=== PATIENT | female | born 1990 | race Caucasian/White ===

== ENCOUNTER 2019-04-21 00:08 | Emergency (ER) | payer OTHER ==
--- NOTE | 2019-04-21 01:11 | ED ---
Bite Injury/Animal - HPI Summary HPI Summary: Patient states she was scratched by her roommate's cat today. Patient is concerned for rabies exposure, as the cat attacked the bat yesterday. Cat is vaccinated. Scratches to distal fourth digit of right hand. Denies any other pain, injury or symptoms. - History of Current Complaint Chief Complaint: EDAnimalBite Stated Complaint: POS EXPOSED TO RABIES PER PT Hx Obtained From: Patient Onset of Injury: Happened hours ago Type of Bite: Pet Has Animal Been Immunized?: Yes Severity Initially: Mild Severity Currently: None Pain Intensity: 0 Pain Scale Used: 0-10 Numeric Character: Abrasion/Laceration Associated Signs And Symptoms: Positive: Negative Animal Available for Observation: Yes - Allergies/Home Medications Allergies/Adverse Reactions: Allergies Allergy/AdvReac Type Severity Reaction Status Date / Time No Known Allergies Allergy Verified 04/21/19 01:16 Home Medications: Home Medications Levothyroxine TAB* 0.75 mcg PO DAILY 04/21/19 [History Confirmed 04/21/19] PMH/Surg Hx/FS Hx/Imm Hx Endocrine/Hematology History: Denies: Hx Anticoagulant Therapy Cardiovascular History: Denies: Hx Pacemaker/ICD History: Denies: Hx Dialysis Sensory History: Denies: Hx Eye Prosthesis Opthamlomology History: Denies: Hx Legally Blind EENT History: Denies: Hx Deafness Neurological History: Denies: Hx Dementia Infectious Disease History: No Infectious Disease History: Denies: Traveled Outside the [place] in Last 30 Days - Family History Known Family History: Positive: Non-Contributory - Social History Alcohol Use: Occasionally Substance Use Type: Reports: None Smoking Status (MU): Never Smoked Tobacco Review of Systems Constitutional: Negative Eyes: Negative ENT: Negative Cardiovascular: Negative Respiratory: Negative Gastrointestinal: Negative Genitourinary: Negative Musculoskeletal: Negative Skin: Other Neurological: Negative Psychological: Normal All Other Systems Reviewed And Are Negative: Yes Physical Exam - Summary Physical Exam Summary: Small superficial laceration to medial surface of distal fourth digit of right hand. Laceration 1 cm x 0.25 cm. No indication for suturing. No erythema, ecchymosis, deformity, swelling noted. Triage Information Reviewed: Yes Vital Signs On Initial Exam: Initial Vitals Temp Pulse Resp BP Pulse Ox 98.6 F 79 16 143/93 100 04/21/19 00:10 04/21/19 00:10 04/21/19 00:10 04/21/19 00:10 04/21/19 00:10 Vital Signs Reviewed: Yes Appearance: Positive: Well-Appearing Skin: Positive: Warm Head/Face: Positive: Normal Head/Face Inspection Eyes: Positive: Normal Neck: Positive: Supple Respiratory/Lung Sounds: Positive: Clear to Auscultation Cardiovascular: Positive: Normal Abdomen Description: Positive: Nontender Musculoskeletal: Positive: Normal Neurological: Positive: Normal Psychiatric: Positive: Normal AVPU Assessment: Alert - Willis Coma Scale Best Eye Response: 4 - Spontaneous Best Motor Response: 6 - Obeys Commands Best Verbal Response: 5 - Oriented Coma Scale Total: 15 Diagnostics - Vital Signs Vital Signs Temp Pulse Resp BP Pulse Ox 04/21/19 00:10 98.6 F 79 16 143/93 100 - Laboratory Lab Statement: Any lab studies that have been ordered have been reviewed, and results considered in the medical decision making process. Bite Injury Course/Dx - Course Course Of Treatment: Patient states she was scratched by her roommate's cat today. Patient is concerned for rabies exposure, as the cat attacked the bat yesterday. Cat is vaccinated. Scratches to distal fourth digit of right hand. Denies any other pain, injury or symptoms. Vital signs within normal limits. Discussed patient with [facility] Juliano Morales stated patient did not meet criteria for rabies treatment. Patient advised to call [facility] or return to the ED for any concerning symptoms. - Diagnoses Provider Diagnosis: Cat scratch of right hand Discharge - Sign-Out/Discharge Documenting (check all that apply): Patient Departure Patient Received Moderate/Deep Sedation with Procedure: No - Discharge Plan Condition: Stable Disposition: HOME Patient Education Materials: Abrasion (ED) Referrals: No Primary Care Phys,NOPCP [Primary Care Provider] - Additional Instructions: Keep wound clean and dry. If cat starts to display unusual symptoms or behavior contact [facility] department - Billing Disposition and Condition Condition: STABLE Disposition: Home
[2019-04-21 02:05] VITALS: BP 144/86
== END 2019-04-21 02:04 | disposition home or self-care (01) ==
LOC: ED 00:08
DX: S60.511A Abrasion of right hand, initial encounter (principal); W55.03XA Scratched by cat, initial encounter; Y92.009 Unspecified place in unspecified non-institutional (private) residence as the place of occurrence of the external cause
CPT/HCPCS: 99282

== ENCOUNTER 2019-10-16 18:42 | Emergency (ER) | payer OTHER ==
--- OUTSIDE RECORDS SUMMARY | 2019-10-16 18:56 | XMS REPORT | Continuity of Care Document ---
:1990 External Reference #:[id number] Author Name Johana Rai CNM Address [address] [place] [address] Care Team Providers Name Role Phone Sonam Barrios MD Care Team Information [place] [employer] [phone] Problems Description No Information Available Social History Type Date Description Comments Sex Unknown Cigarette Use Does Not Smoke Cigarettes ETOH Use Occasionally consumes alcohol Recreational Drug Use Denies Drug Use Seat Belt/Car Seat Always uses seat belt Allergies, Adverse Reactions, Alerts Active Allergies Reaction Severity Comments Date Tetanus Toxoid Vaccine, Childhood, has since had 08/18/2019 Inactivated Tdap with monitoring/antihistamine Hepatitis B Vaccine Hives 08/18/2019 Medications Active Medications SIG Qnty Indications Ordering Date Provider Levothyroxine Sodium 1 by mouth Unknown 75mcg Tablets every day Claritin Unknown 10mg Capsules Multivitamin Adult Unknown Chewtabs Dexmethylphenidate HCL ER Unknown 25mg Caps ER 24HR L-Lysine HCL Unknown 1000mg Tablets Medications Administered in Office Medication SIG Qnty Indications Ordering Provider Date PT SCRN Tbco Id as Non User Johana Rai CNM 08/18/2019 Injection Immunizations Description No Information Available Vital Signs Date Vital Result Comment 08/18/2019 8:00am BP Systolic 120 mmHg BP Diastolic 78 mmHg Height 65 inches 5'5" Weight 213.00 lb BMI (Body Mass Index) 35.4 kg/m2 Last Menstrual Period [id number] 0 Parity 0 Results Description No Information Available Procedures Description No Information Available Medical Devices Description No Information Available Encounters Description No Information Available Assessments Date Code Description Provider 08/18/2019 Z30.09 Encounter for other general counseling and Johana Rai CNM advice on contraception 08/18/2019 N94.6 Dysmenorrhea, unspecified Johana Rai CNM 08/18/2019 N83.299 Other ovarian cyst, unspecified side Johana Rai CNM Plan of Treatment Future Appointment(s):09/30/2019 1:30 pm - Carmen Hicks MD at [facility] - Johana Rai CNMZ30.09 Encounter for other general counseling and advice on contraceptionComments:As discussed, you would like to try Liletta IUD for cycle control and contraception. We will schedule you with one of the doctors who could consider using a block for placement as well as continue the conversation about managing periods.N94.6 Dysmenorrhea, vbdpbfeseisM47.299 Other ovarian cyst, unspecified sideComments:Call with pain or other problems to consider imaging if indicated. For now you have decelined further workup with labs/sono but could do in future. Functional Status Description No Information Available Mental Status Description No Information Available Referrals Description No Information Available
--- OUTSIDE RECORDS SUMMARY | 2019-10-16 18:56 | XMS REPORT | Continuity of Care Document ---
:1990 External Reference #:[id number] Author Name Carmen Hicks MD Address [address] [place] [address] Care Team Providers Name Role Phone Sonam Barrios MD Care Team Information Land Checker [phone] Problems Description No Information Available Social History Type Date Description Comments Sex Unknown Cigarette Use Does Not Smoke Cigarettes ETOH Use Occasionally consumes alcohol Recreational Drug Use Denies Drug Use Tobacco Use Start: Unknown Patient has never smoked Smoking Status Reviewed: 09/30/19 Patient has never smoked Seat Belt/Car Seat Always uses seat belt Allergies, Adverse Reactions, Alerts Active Allergies Reaction Severity Comments Date Tetanus Toxoid Vaccine, Childhood, has since had 08/18/2019 Inactivated Tdap with monitoring/antihistamine Hepatitis B Vaccine Hives 08/18/2019 Medications Active Medications SIG Qnty Indications Ordering Date Provider Kyle (52 MG) Carmen Hicks, 09/30/2019 19.5mcg/Day IUD Levothyroxine Sodium 1 by mouth Unknown 75mcg Tablets every day Claritin Unknown 10mg Capsules Multivitamin Adult Unknown Chewtabs Dexmethylphenidate HCL ER Unknown 30mg Caps ER 24HR L-Lysine HCL Unknown 1000mg Tablets Medications Administered in Office Medication SIG Qnty Indications Ordering Provider Date PT SCRN Tbco Id as Non User Johana Rai CNM 08/18/2019 Injection Immunizations Description No Information Available Vital Signs Date Vital Result Comment 09/30/2019 1:24pm BP Systolic 124 mmHg BP Diastolic 74 mmHg Height 65 inches 5'5" Weight 211.00 lb BMI (Body Mass Index) 35.1 kg/m2 Last Menstrual Period [id number] 08/18/2019 8:00am BP Systolic 120 mmHg BP Diastolic 78 mmHg Height 65 inches 5'5" Weight 213.00 lb BMI (Body Mass Index) 35.4 kg/m2 Last Menstrual Period [id number] 0 Parity 0 Results Description No Information Available Procedures Date Code Description Status 09/30/2019 11314 Insert Intrauterine Device Completed Medical Devices Description No Information Available Encounters Type Date Location Provider Dx Diagnosis Office Visit 08/18/2019 [facility] Office Johana Rai Z30.09 Encounter for oth 8:15a CNM general coun and advice on contraception N94.6 Dysmenorrhea, unspecified N83.299 Other ovarian cyst, unspecified side Assessments Date Code Description Provider 09/30/2019 Z30.430 Encounter for insertion of intrauterine Carmen Hicks MD contraceptive device 08/18/2019 Z30.09 Encounter for other general counseling and Johana Rai CNM advice on contraception 08/18/2019 N94.6 Dysmenorrhea, unspecified Johana Rai CNM 08/18/2019 N83.299 Other ovarian cyst, unspecified side Johana Rai CNM Plan of Treatment Future Appointment(s):11/09/2019 2:30 pm - Carmen Hicks MD at [id number] - Carmen Hicks MDZ30.430 Encounter for insertion of intrauterine contraceptive deviceComments:Sometimes patients experience nausea or dizziness soon after insertion. If this happens, sit/lay down right away to avoid passing out. You may experience irregular bleeding for 3-6 months. This is generally light bleeding or spotting. You may continue to have periods but they should be russet repairer thanbefore. Your periods may go away completely or you may have a few days of light bleeding or brownish discharge in place of a period. If you are changing heavy pads more than once an hour, call the office. You may have cramping for a few days to a few weeks. Take 600mg of Ibuprofen and if pain is still severe call the office. Continue current form of control for 1 week.Return for IUD check in6-8 weeks. You should try to check your strings before your appointment. Functional Status Description No Information Available Mental Status Description No Information Available Referrals Description No Information Available
[2019-10-16] MEDS ORDERED: oxyCODONE/Acetamin 5/325 MG* TAB PO ONE (20:32)
--- NOTE | 2019-10-16 21:32 | ED ---
GI/ HPI - HPI Summary HPI Summary: 29-year-old female presents with iud issue. She had it placed 3 weeks ago. States that she is currently bleeding more today. States that today she had more intense cramping and felt like she needed to push. She states that she had more bleeding. She states that it feels like it is lower than it should be. She denies any nausea vomiting. No urinary symptoms. no abnormal vaginal discharge. She has no medical conditions. Has been taking naproxen. - History of Current Complaint Chief Complaint: EDOBProblems Time Seen by Provider: 10/16/19 20:07 Stated Complaint: IUD ISSUE PER PT Pain Intensity: 8 - Allergy/Home Medications Allergies/Adverse Reactions: Allergies Allergy/AdvReac Type Severity Reaction Status Date / Time No Known Allergies Allergy Verified 04/21/19 01:16 PMH/Surg Hx/FS Hx/Imm Hx Endocrine/Hematology History: Denies: Hx Anticoagulant Therapy Cardiovascular History: Denies: Hx Pacemaker/ICD History: Denies: Hx Dialysis Sensory History: Denies: Hx Eye Prosthesis, Hx Legally Blind, Hx Deafness Opthamlomology History: Denies: Hx Eye Prosthesis, Hx Legally Blind Neurological History: Denies: Hx Dementia Infectious Disease History: No Infectious Disease History: Denies: Traveled Outside the [place] in Last 30 Days - Family History Known Family History: Positive: Non-Contributory - Social History Alcohol Use: Occasionally Substance Use Type: Reports: None Smoking Status (MU): Never Smoked Tobacco Review of Systems Negative: Fever Negative: Chest Pain Negative: Shortness Of Breath Positive: Abdominal Pain All Other Systems Reviewed And Are Negative: Yes Physical Exam Triage Information Reviewed: Yes Vital Signs On Initial Exam: Initial Vitals Temp Pulse Resp BP Pulse Ox 98.0 F 78 18 140/91 98 10/16/19 18:46 10/16/19 18:46 10/16/19 18:46 10/16/19 18:46 10/16/19 18:46 Vital Signs Reviewed: Yes Appearance: Positive: Well-Appearing Skin: Positive: Warm, Dry Head/Face: Positive: Normal Head/Face Inspection Eyes: Positive: Normal, Conjunctiva Clear ENT: Positive: Pharynx normal Respiratory/Lung Sounds: Positive: Clear to Auscultation, Breath Sounds Present Cardiovascular: Positive: Normal, RRR Abdomen Description: Positive: Soft, Other: - tenderness in lower abd, strings seen lower in vaginal canal Bowel Sounds: Positive: Present Musculoskeletal: Positive: Normal Neurological: Positive: Normal Psychiatric: Positive: Normal Procedures - Sedation Patient Received Moderate/Deep Sedation with Procedure: No Diagnostics - Vital Signs Vital Signs Temp Pulse Resp BP Pulse Ox 10/16/19 21:07 16 10/16/19 18:46 98.0 F 78 18 140/91 98 - Laboratory Lab Results: Lab Results 10/16/19 Range/Units 20:20 C.trachomatis (Amp Det) Pending N.gonorrhoeae (Amp Det) Pending Lab Statement: Any lab studies that have been ordered have been reviewed, and results considered in the medical decision making process. - Ultrasound No standard instances Ultrasound Interpretation Completed By: Radiologist Summary of Ultrasound Findings: IMPRESSION: 1. Malposition IUD in the lower uterine segment. 2. Sonographically normal uterus and right ovary. Nonvisualized left ovary. Re-Evaluation - Re-Evaluation First Eval Re-Evaluation Time: 21:41 Comment: removed IUD GIGU Course/Dx - Course Course Of Treatment: 29-year-old female presents with iud issue. She had it placed 3 weeks ago. States that she is currently bleeding more today. States that today she had more intense cramping and felt like she needed to push. She states that she had more bleeding. She states that it feels like it is lower than it should be. She denies any nausea vomiting. No urinary symptoms. no abnormal vaginal discharge. She has no medical conditions. Has been taking naproxen. On exam strings are seen lower in the vaginal canal. Unable to visualize os well. Ultrasound shows malpositioned IUD. Removed IUD without complications. Told to follow-up with [facility]OP[facility] OFFICER about control. Patient understands and agrees with plan. - Diagnoses Differential Diagnoses - Female: Ovarian Cyst, Ovarian Torsion, Other - iud malpoistioned Provider Diagnoses: Malpositioned IUD Discharge ED - Sign-Out/Discharge Documenting (check all that apply): Patient Departure - Discharge Plan Condition: Good Disposition: HOME Referrals: No Primary Care Phys,NOPCP [Primary Care Provider] - Additional Instructions: follow up with deicer finisher for alternative control Return to ED if develop any new or worsening symptoms - Billing Disposition and Condition Condition: GOOD Disposition: Home
[2019-10-16 21:41] VITALS: BP 152/96
[2019-10-16 21:51] LABS: Urine Appearance Cloudy; Urine Bilirubin Negative (Negative); Urine Blood 3+ (Negative); Urine Color Yellow; Urine Glucose Negative (Negative); Urine Ketones Negative (Negative); Urine Nitrite Negative (Negative); Urine Protein Negative (Negative); Urine Specific Gravity 1.004 (1.010-1.030); Urine Urobilinogen Negative (Negative)
[2019-10-16 21:54] LABS: Urine Bacteria Absent (Absent); Urine Red Blood Cell 2+(6-10/hpf) (Absent); Urine Squamous Epithelial Cell Present (Absent); Urine White Blood Cell Trace(0-5/hpf) (Absent)
[2019-10-18 15:29] LABS: Chlamydia trachomatis NAA Negative (Negative); Neisseria gonorrhoeae (GC) NAA Negative (Negative)
[2019-10-19 13:15] LABS: Trichomonas vag NAA Female Negative (Negative)
== END 2019-10-16 21:40 | disposition home or self-care (01) ==
LOC: ED 18:42
DX: T83.32XA Displacement of intrauterine contraceptive device, initial encounter (principal)
CPT/HCPCS: 76857; 81003; 81015; 87086; 87480; 87491; 87510; 87591; 87661; 99282; A9270-GY